=== PATIENT | male | born 1965 | race Caucasian/White ===

== ENCOUNTER 2017-07-31 16:06 | Observation (INO) ==
--- NOTE | 2017-07-31 16:28 | Emergency Department Note ---
Disposition Clinical Impression: Chest pain Qualifiers: Chest pain type: unspecified Qualified Code(s): R07.9 - Chest pain, unspecified Disposition: Admitted As Inpatient Chest Pain HPI - General Chief Complaint: ED Chest Pain Stated Complaint: chest pain Source: patient, EMS Mode of arrival: EMS Limitations: no limitations Vital Signs Reviewed: Yes Nursing Notes Reviewed: Yes - History of Present Illness HPI Narrative: 51 yo M c PMHx of Kidney stones, Tobacco abuse, ETOH abuse who [facility] complaining of sharp, L sided chest pain x 2 hours. Per patient he was sitting watching tv when he felt sudden onset of sharp L sided chest pain. Patient denies SOB, N, V, D, Fever, chills, diaphoresis. Patient denies radiations of pain to arm or jaw. Patient denies hx of HTN, HLD, DM, Family hx of cardiac disease to his knowledge. Patient smoked a pack a day prior to being incarcerated several months ago. He reports drinking a 1/5th of liquor a day prior to incarceration as well. He endorses meth use over a year ago, but not illicit drug use in [facility]. Patient received 324mg ASA and 1 NG at [facility] prior to being brought to ED. Pt complaint: chest pain Onset (ago): hour(s) (2) Duration: constant, other (improved) Severity scale (1-10): 3 Quality: sharp Pain Radiation: none Improves with: nitroglycerin Worsens with: nothing Associated symptoms: Denies: nausea, vomiting, diaphoresis, dyspnea, fever, leg swelling Treatments prior to arrival chest pain: aspirin, nitroglycerin - Related Data Home Medications Medication Instructions Recorded Confirmed No Known Home Drugs 07/31/17 07/31/17 Allergies Allergy/AdvReac Type Severity Reaction Status Date / Time No Known Allergies Allergy Verified 07/31/17 16:19 All systems ED: reviewed and negative except as stated. Review of Systems: As Per HPI Chest Pain PMH - Past Medical History Medical history: Reports: kidney stones Psychiatric history: Reports: no psych history - Social History Smoking Status: Former smoker Alcohol use: Reports: none Drug use: Reports: none Physical Exam - General Limitations: no limitations General appearance: alert, in no apparent distress - Head Head exam: atraumatic, normocephalic - Eye Eye exam: Present: PERRL. Absent: conjunctival injection - ENT ENT exam: normal oropharynx, mucous membranes moist - Neck Neck exam: Present: full ROM, trachea midline - Chest Chest inspection: Present: symmetric chest wall rise, tenderness (L side, reproduces patient's pain) - Respiratory Respiratory exam: Present: normal lung sounds bilaterally. Absent: respiratory distress - Cardiovascular Cardiovascular exam: Present: regular rate, normal rhythm, normal heart sounds - Abdominal Exam Abdominal exam: Present: soft, Non-Tender, normal bowel sounds - Extremities Exam Extremities exam: Absent: tenderness, pedal edema - Neurological Exam Neurological exam: Present: alert, oriented X3 - Psychiatric Psychiatric exam: Present: normal affect, normal mood - Skin Skin exam: Present: warm, dry Course - Consultations Consultation #1: Discussed case with admitting hospitalist who agreed to accept the patient. Vital Signs Temperature 97.5 F L 07/31/17 16:10 Pulse Rate 74 07/31/17 16:10 Respiratory Rate 12 07/31/17 16:10 Blood Pressure 139/94 07/31/17 16:10 O2 Sat by Pulse Oximetry 96 07/31/17 16:10 Temperature 98.2 F 08/01/17 03:59 Pulse Rate 61 08/01/17 03:59 Respiratory Rate 16 08/01/17 03:59 Blood Pressure 109/69 08/01/17 03:59 O2 Sat by Pulse Oximetry 97 08/01/17 03:59 Oxygen Delivery Oxygen Delivery Room Air Chest Pain - MDM Narrative Medical decision making narrative: Patient with sudden onset of Left sided chest pain. Pain is reproducible with palpation. EKG is normal. Will work up with basic lab work, trop, CXR. Will likely repeat EKG and Trop later in visit. Patient has few risk factors, but has not kept up with a PCP so may have more undiagnosed risk factors. We can rule out PE based on PERC score of 0. Patietn had Chest pain releived by nitro. No prior cardiac work up will admit for cardiac work up. - Differential Diagnosis Likely: unstable angina pectoris, atypical chest pain, chest pain - Medical Records Medical records reviewed: Yes I reviewed the patient's medical records. - Lab Data Lab results reviewed: Yes I reviewed the patient's lab results. Result diagrams: 07/31/17 16:49 07/31/17 16:49 Lab Results 07/31/17 07/31/17 07/31/17 Range/Units 16:49 16:49 20:10 WBC 8.1 (4.3-11.1) K/mcL RBC 4.25 (4.19-5.50) M/mcL Hgb 13.4 (12.9-16.9) g/dL Hct 38.0 (37.5-50.1) % MCV 89.4 (83.0-100.0) fL MCH 31.5 (28.0-33.3) pg MCHC 35.3 (31.6-35.5) g/dL RDW 12.9 (11.5-14.5) % Plt Count 248 (140-400) K/mcL MPV 10.8 (9.4-12.4) fL Immature Gran % 0.1 (0-4) % Seg Neutrophils % 58.4 % Lymphocytes % 23.8 % Monocytes % 11.4 % Eosinophils % 4.7 % Basophils % 1.6 % Neutrophils # 4.7 (1.6-8.9) K/mcL Lymphocytes # 1.9 (0.6-4.6) K/mcL Monocytes # 0.9 (0.0-1.3) K/mcL Eosinophils # 0.4 (0.0-0.6) K/mcL Basophils # 0.1 (0.0-0.2) K/mcL Sodium 138 (136-145) mEq/L Potassium 3.8 (3.5-5.1) mEq/L Chloride 106 (98-107) mEq/L Carbon Dioxide 23 (23-29) mEq/L BUN 16 (6-20) mg/dL Creatinine 0.77 (0.70-1.30) mg/dL Est GFR ( Amer) > 60 (> 60) Est GFR (Non-Af Amer) > 60 (> 60) BUN/Creatinine Ratio 21 (6-26) Glucose 114 H (70-105) mg/dL Calculated Osmolality 288 (280-300) Calcium 9.2 (8.6-10.3) mg/dL Troponin I < 0.03 < 0.03 (< 0.04) ng/mL - Radiology Data Radiology results reviewed: Yes I reviewed the patient's radiology results. Chest X-Ray 07/31/17 16:28 IMPRESSION: No acute cardiopulmonary process. D/ /31/2017 16:50:15 Philip Fermin MD / [place] Interpreting Provider: Philip Fermin MD - EKG Data EKG attestation: Yes I reviewed and interpreted this EKG. EKG shows normal: sinus rhythm Rate: normal Rhythm: NSR Mcconnell/QRS: normal When compared to previous EKG there are: previous EKG unavailable Interpretation: normal EKG Heart Score - Score History: Slightly Suspicious EKG: Normal Age: 45-65 Risk Factors: 1-2 risk factors Troponin: Less than normal limit HEART Score Total: 2 Attestation Statement - Attestation Attestation: I examined this patient and my medical decision-making was reviewed with the Resident Physician, Dr. Emery. I agree with the documented findings, disposition and treatment plan as described except to the extent set forth below. Pt is a 51 yo wm, brought from [facility] with c/o CP. CP is L sided, nonrad, and improved following ASA and nitro x 1 at [facility]. Pt denies any cardiac hx/ testing. Pt with +fam hx and smoker. Former IVDA. No medical eval in "years". I agree with pt's PE findings, and personally evaluated pt. Pt with EKG without acute ischemia, NSR. CXR wnl. Labs wnl. Pain resolved after nitro trial. Pain free. Admitted to hospitalist service for further eval/mgmt.
[2017-07-31] MEDS ORDERED: Nitroglycerin 0.4 MG TAB.SUBL SL PRN (16:35)
[2017-07-31 17:08] LABS: Basophils # 0.1 K/mcL (0.0-0.2); Basophils % 1.6 %; Eosinophils # 0.4 K/mcL (0.0-0.6); Eosinophils % 4.7 %; Hemoglobin 13.4 g/dL (12.9-16.9); Immature Granulocytes % 0.1 % (0-4); Lymphocytes # 1.9 K/mcL (0.6-4.6); Lymphocytes % 23.8 %; Mean Corpuscular HGB Conc 35.3 g/dL (31.6-35.5); Mean Corpuscular Hemoglobin 31.5 pg (28.0-33.3); Mean Corpuscular Volume 89.4 fL (83.0-100.0); Mean Platelet Volume 10.8 fL (9.4-12.4); Monocytes # 0.9 K/mcL (0.0-1.3); Monocytes % 11.4 %; Neutrophils # 4.7 K/mcL (1.6-8.9); Platelet Count 248 K/mcL (140-400); Red Blood Count 4.25 M/mcL (4.19-5.50); Red Cell Distribution Width 12.9 % (11.5-14.5); Segmented Neutrophils % 58.4 %
[2017-07-31 17:28] LABS: Troponin I < 0.03 ng/mL (< 0.04)
[2017-07-31 17:36] LABS: BUN/Creatinine Ratio 21 (6-26); Blood Urea Nitrogen 16 mg/dL (6-20); Calcium 9.2 mg/dL (8.6-10.3); Carbon Dioxide 23 mEq/L (23-29); Chloride 106 mEq/L (98-107); Glucose 114 mg/dL (70-105); Osmolality,Calculated 288 (280-300); Potassium 3.8 mEq/L (3.5-5.1); Sodium 138 mEq/L (136-145); eGFR For African Americans > 60 (> 60); eGFR For Non-African Americans > 60 (> 60)
[2017-07-31] MEDS ORDERED: Naloxone 0.4 MG/ML INJ IVP PRN (19:59)
[2017-07-31] MEDS ORDERED: traMADol 50 MG TABLET PO PRN (19:59)
[2017-07-31] MEDS ORDERED: Acetaminophen 325 MG TABLET PO PRN (19:59)
--- NOTE | 2017-07-31 20:07 | Internal Med History&Physical ---
<Sera Woods - Last Filed: 07/31/17 20:05> Date of Encounter: 07/31/17 Time of Encounter: 20:05 Internal Medicine - H&P: HPI History of present illness: 51 yo M c PMHx of Kidney stones, Tobacco abuse, ETOH abuse who reports from [facility] complaining of sharp, L sided chest pain x 2 hours. Per patient he was sitting watching tv when he felt sudden onset of sharp L sided chest pain. Patient denies SOB, N, V, D, Fever, chills, diaphoresis. Patient denies radiations of pain to arm or jaw. Patient denies hx of HTN, HLD, DM, Family hx of cardiac disease to his knowledge. Patient smoked a pack a day prior to being incarcerated several months ago. He reports drinking a 1/5th of liquor a day prior to incarceration as well. He endorses meth use over a year ago, but not illicit drug use in [facility]. Patient received 324mg ASA and 1 NG at [place] [facility] [place] prior to being brought to ED. He reported nitroglycerin somewhat helps the chest pain. At the ED, his vital signs were stable. Labs including troponin were normal. EKG no acute ST-T changes. He will be admitted as observation for further evaluation. Past Med Surg Social Fam HX - Past Medical History Medical history: kidney stones Psychiatric history: no psych history - Social History Smoking Status: Former smoker Smokeless Tobacco Status: No Alcohol use: none Drug use: none Internal Medicine - H&P: Meds No Known Home Drugs 07/31/17 [History] 3 Allergy/AdvReac Type Severity Reaction Status Date / Time No Known Allergies Allergy Verified 07/31/17 16:19 All Systems PM: A 10-system review of systems was performed and is negative for pertinent findings except as documented above in the HPI. Review of systems: REVIEW OF SYSTEMS: CONSTITUTIONAL: No weight loss, fever, chills, weakness or fatigue. HEENT: Eyes: No visual loss, blurred vision, double vision or yellow sclerae. Ears, Nose, Throat: No hearing loss, sneezing, congestion, runny nose or sore throat. SKIN: No rash or itching. CARDIOVASCULAR: see HPI. RESPIRATORY: No shortness of breath, cough or sputum. GASTROINTESTINAL: No anorexia, nausea, vomiting or diarrhea. No abdominal pain or blood. GENITOURINARY: No dysuria, urgency, or frequency. NEUROLOGICAL: No headache, dizziness, syncope, paralysis, ataxia, numbness or tingling in the extremities. No change in bowel or bladder control. MUSCULOSKELETAL: No muscle, back pain, joint pain or stiffness. HEMATOLOGIC: No anemia, bleeding or bruising. LYMPHATICS: No enlarged nodes. No history of splenectomy. PSYCHIATRIC: No history of depression or anxiety. ENDOCRINOLOGIC: No reports of sweating, cold or heat intolerance. No polyuria or polydipsia. - Constitutional Vitals: Temp Pulse Resp BP Pulse Ox 97.5 F L 70 11 123/83 94 07/31/17 16:10 07/31/17 19:43 07/31/17 19:43 07/31/17 19:43 07/31/17 19:43 General appearance: Present: A&O X 3 Exam: PHYSICAL EXAMINATION: GENERAL APPEARANCE: The patient is alert, oriented and in no acute distress. HEENT: Head is normocephalic. The sinuses are nontender. Pupils are equal and reactive. The nares are patent. Oropharynx clear without lesions. NECK: Supple without lymphadenopathy. HEART: Regular rate and rhythm. LUNGS: No crackles or wheezes are heard. ABDOMEN: Soft, nontender, nondistended with good bowel sounds heard. Inguinal area is normal. EXTREMITIES: Without cyanosis, clubbing or edema. NEUROLOGICAL: Gross nonfocal. SKIN: Warm and dry without any rash. Internal Med - H&P Results - Labs CBC & Chem 7: 07/31/17 16:49 07/31/17 16:49 Labs: Short CBC 07/31/17 Range/Units 16:49 WBC 8.1 (4.3-11.1) K/mcL Hgb 13.4 (12.9-16.9) g/dL Hct 38.0 (37.5-50.1) % Plt Count 248 (140-400) K/mcL Neutrophils # 4.7 (1.6-8.9) K/mcL BMP 07/31/17 16:49 Sodium 138 Potassium 3.8 Chloride 106 Carbon Dioxide 23 BUN 16 Creatinine 0.77 Glucose 114 H Calcium 9.2 Cardiac Enzymes 07/31/17 Range/Units 16:49 Troponin I < 0.03 (< 0.04) ng/mL - Impressions ITS Impressions Chest X-Ray 07/31/17 16:28 IMPRESSION: No acute cardiopulmonary process. D/ / 07/31/2017 16:50:15 Philip Fermin MD / [place] Interpreting Provider: Philip Fermin MD - Assessment and plan (1) Chest pain Current Visit: Yes Status: Acute Assessment and plan: 51-year-old male with history of tobacco, alcohol, and drug abuse who was recently incarcerated presented to the ED with acute onset of chest pain. No family history of CV disease. - Typical chest pain per patient description. CV risk factor including tobacco abuse, overall, low risk chest pain. - Troponin negative 1, EKG no acute ST-T change. Pending urine drug screen. - Received 325 mg aspirin, we will continue cycle troponin, telemetry monitoring , EKG as needed. - Lipid panel in the morning, stress nuclear test, and echocardiogram in the morning. Qualifiers: Chest pain type: unspecified Qualified Code(s): R07.9 - Chest pain, unspecified - Time Spent With Patient Total time spent is greater than 50% in coordination of care (as documented) at patient's floor/unit and/or counseling patient: Greater than 35 minutes <Alice Morrow - Last Filed: 07/31/17 21:59> Date of Encounter: 07/31/17 Time of Encounter: 20:25 Internal Medicine - H&P: HPI History of present illness: Mr. Islas is a 51 year old male All Systems PM: A 10-system review of systems was performed and is negative for pertinent findings except as documented above in the HPI. - Constitutional Vitals: Temp Pulse Resp BP Pulse Ox 97.5 F L 70 20 123/78 93 07/31/17 16:10 07/31/17 20:54 07/31/17 21:18 07/31/17 21:18 07/31/17 20:54 Internal Med - H&P Results - Labs CBC & Chem 7: 07/31/17 16:49 07/31/17 16:49 - Attending Attestation Patient independently seen and examined with police present at bedside. pt is incarcerated and started having left sided chest pain in [facility] as he was watching earlier today. Pt will be admitted for chest pain to rule out ACS no ekg changes reported, initial tni unremarkable will trend serial TNI, tele monitoring ASA, lipitor nitro SL prn chest pain f/u UDS given history of drug abuse however pt reports of being in [facility] for the last 5 months and has not had any alcohol or drug abuse DVT ppx 2D echo and nuclear stress in am consider cardiology evaluation if above tests are abnormal Case discussed with CADY Woods, I agree with his documented findings, assessment, and plan except as listed above. - Assessment and plan (1) Chest pain Current Visit: Yes Status: Acute Qualifiers: Chest pain type: unspecified Qualified Code(s): R07.9 - Chest pain, unspecified - Time Spent With Patient Total time spent is greater than 50% in coordination of care (as documented) at patient's floor/unit and/or counseling patient:
[2017-07-31] MEDS: *HR* Heparin 5,000 UNIT/ML VIAL SQ SCH (22:06)
[2017-08-01 02:15] LABS: Cholesterol 216 mg/dL (< 200); HDL Cholesterol 36 mg/dL (40-59); Triglycerides 439 mg/dL (< 150)
[2017-08-01] MEDS: *HR* Heparin 5,000 UNIT/ML VIAL SQ SCH (06:31)
[2017-08-01] MEDS ORDERED: Regadenoson 0.4 MG/5 ML SYRINGE IVP ONE (07:18)
[2017-08-01 08:48] LABS: Amphetamine Screen,Urine Negative ng/mL (Cutoff=1000); Barbiturate Screen,Urine Negative ng/mL (Cutoff=200); Benzodiazepines Screen,Urine Negative ng/mL (Cutoff=200); Cannabinoid Screen,Urine Negative ng/mL (Cutoff = 50); Cocaine Screen,Urine Negative ng/mL (Cutoff= 300); Opiate Screen,Urine Negative ng/mL (Cutoff=300); Phencyclidine Screen,Urine Negative ng/mL (Cutoff=25)
[2017-08-01] MEDS ORDERED: Aspirin 81 MG TAB.CHEW PO SCH (09:00)
[2017-08-01 10:31] LABS: Estimated Average Glucose 117 mg/dl; Hemoglobin A1C 5.7 %
--- NOTE | 2017-08-01 14:30 | Discharge Summary ---
Date of Encounter: 08/01/17 Time of Encounter: 14:27 - Discharge Diagnosis (1) Chest pain Priority: Primary Status: Acute Assessment and Plan: 51-year-old male with history of tobacco, alcohol, and drug abuse who was recently incarcerated presented to the ED with acute onset of chest pain. No family history of CV disease. Chest pain with atypical presentation, improved with nitroglycerin 1 in the ED. Has not had recurrence of chest pain since arrival. An ACS workup due to CV risk factors including tobacco alcohol and drug abuse. Troponins found to be negative, no ST elevation or T-wave changes concerning for ischemia. He was given aspirin and statin while inpatient however, patient reports that he does not take these in the outpatient setting. Underwent stress test this afternoon found to be negative for ischemia. The patient has remained hemodynamically stable throughout the stay and has had an uncomplicated hospital course. Due to resolution of chest pain and negative workup the patient is medically stable for discharge. He will be discharged back to [facility] with guards present with new prescriptions for aspirin, simvastatin and nitroglycerin. He has been instructed to return to the emergency department should chest pain and/or shortness of breath/dyspnea returned. Echocardiogram pending at discharge. Qualifiers: Chest pain type: unspecified Qualified Code(s): R07.9 - Chest pain, unspecified Hospital course: Mr. Islas is a 51 year old male Please see assessment and plan for hospital course - Time Spent with Patient Total time spent providing and/or coordinating discharge services: Greater than 30 minutes - Discharge Medications Prescriptions: Nitroglycerin 0.4 mg SL Q5MIN PRN #25 tab.subl PRN Reason: Chest Pain Atorvastatin [Lipitor] 40 mg PO HS #30 tablet Home Medications: Aspirin 81 mg PO DAILY tab.chew 08/01/17 [Rx] Atorvastatin [Lipitor] 40 mg PO HS #30 tablet 08/01/17 [Rx] Nitroglycerin 0.4 mg SL Q5MIN PRN #25 tab.subl 08/01/17 [Rx] Allergies/Adverse Reactions: 3 Allergy/AdvReac Type Severity Reaction Status Date / Time No Known Allergies Allergy Verified 07/31/17 16:19 Date of admission: 07/31/17 20:53 Primary care physician: PCP NONE Discharging clinician: Ronnie Arce Anticipated date of discharge: 08/01/17 - Constitutional Vitals: Temp Pulse Resp BP Pulse Ox 98.2 F 67 15 122/74 95 08/01/17 11:23 08/01/17 11:23 08/01/17 11:23 08/01/17 11:23 08/01/17 11:23 General appearance: Present: A&O X 3 - Head Head exam: Present: atraumatic, normocephalic - Eye Eye exam: Present: PERRL, conjuntiva pink, sclera anicteric Pupils: Present: PERRL - Neck Neck exam general surgery: Present: supple, trachea midline. Absent: lymphadenopathy - Respiratory Respiratory exam: Present: CTAB. Absent: accessory muscle use, rales, rhonchi, wheezes - Cardiovascular Cardiovascular exam: Present: RRR, +S1, +S2. Absent: diastolic murmur, gallop, rubs, systolic murmur - GI/Abdominal GI/Abdominal exam: Present: normal bowel sounds, soft, no peritoneal signs. Absent: distended, tenderness - Extremities Exam Extremities exam: Present: warm, radial pulses palpable and symmetrical. Absent : calf tenderness, cyanotic, pedal edema - Neurological Exam Neurological exam: Present: CN II-XII intact, oriented X3, no focal deficits. Absent: pronater drift, facial droop, speech deficit - Skin Skin exam: Present: dry, intact - Patient Status Disposition: Transfer Other Condition: Fair Overall status at discharge: patient is progressing back to baseline - Discharge Instructions Instructions: Chest Pain (DC) Follow Up With: NONE,PCP [Primary Care Provider] - - Diet and Activity Diet: advance to your usual diet
[2017-08-01 15:05] VITALS: BP 126/71
--- NOTE | 2017-08-02 22:52 | Electrocardiograph Report ---
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
[2017-08-04 01:08] LABS: Amphetamines NEGATIVE ng/mL (Cutoff 30); Barbiturates NEGATIVE ng/mL (Cutoff 75); Benzodiazepines NEGATIVE ng/mL (Cutoff 75); Cocaine NEGATIVE ng/mL (Cutoff 30); Methadone NEGATIVE ng/mL (Cutoff 40); Methamphetamines NEGATIVE ng/mL (Cutoff 30); Opiates NEGATIVE ng/mL (Cutoff 30); Phencyclidine NEGATIVE ng/mL (Cutoff 15)
== END 2017-08-01 17:32 | disposition other institution (70) ==
LOC: EMEROO 16:06 → 3BNU 16:06
PROVIDERS: ADMIT Student in an Organized Health Care Education/Training Program; ATTEND Internal Medicine